=== PATIENT | female | born 1985 | race African-American/Black ===

== ENCOUNTER 2018-03-22 14:07 | Emergency (ER) | payer OTHER, BC ==
[~2018-03-22] VITALS: Ht 160 cm; Wt 80.5 kg
[~2018-03-22 14:07] MED LIST: ACETAMINOP500 MG/5 M PO; ACID CONTROL150 MG PO; ASPIRIN81 M2 PO; BACTRIM,SEPTRA S1 ML PO; COLACE100 MG PO; Chronulac,Cephulac,E PO; FERRETTS I40 MG/15 M PO; FLAGYL500 MG PO; FOLTX TABLET1 EAC1 PO; GAS-X80 MG PO; HEALTHY HEART1 EAC1 PO; IRON325 M1 PO; MACROBID100 MG PO; MOTRIN800 MG PO; ONDANSETRON HCL4 MG PO; OXYCODONE H5 MG/5 ML PO; PRENATAL TABLE1 EAC3 PO; PROMETHAZINE HC25 M1 PO; RABANO YOD50 MG/15 M PO; TRAMADOL HCL50 MG PO; UNISOM SLEEP AI25 MG PO; ZITHROMAX250 MG PO; ZOFRAN ODT4 MG PO
[2018-03-22 14:42] LABS: HEMATOCRIT 25.8 % (36.0-46.0); HEMOGLOBIN 8.6 G/DL (11.9-15.5); MCHC 33.3 G/DL (30.0-36.0); MCV 93.1 FL (83-99); PLATELET COUNT 428 K/uL (156-360); RBC DIS.WIDTH-CV 11.8 % (11.8-14.6); RBC DIS.WIDTH-SD 39.8 % (39-53); RED BLOOD COUNT 2.77 M/uL (3.80-5.20); WHITE BLOOD COUNT 11.3 K/uL (4.1-10.2)
[2018-03-22 18:42] LABS: TRANSFERRIN (TIBC) 181.5 mg/dL (215-380)
[2018-03-22 19:17] VITALS: BP 103/65
[2018-03-22 19:31] VITALS: BP 112/74
[2018-03-22 20:13] LABS: FOLIC ACID (FOLATE) > 22.0 NG/ML (5.0-22.0)
[2018-03-22 20:17] VITALS: BP 116/74
[2018-03-22 21:09] VITALS: BP 122/72
[2018-03-22 22:08] LABS: HEMATOCRIT 29.8 % (36.0-46.0); HEMOGLOBIN 10.2 G/DL (11.9-15.5); MCV 92.3 FL (83-99)
[2018-03-22 22:15] VITALS: BP 110/85
== END 2018-03-22 22:30 | disposition home or self-care (01) ==
LOC: EME 14:07
PROVIDERS: Emergency Medicine; Nurse Practitioner Family
DX: D64.9 Anemia, unspecified (principal); R53.1 Weakness; Z88.0 Allergy status to penicillin; Z98.84 Bariatric surgery status
CPT/HCPCS: 82607; 82728; 82746; 84466; 85014; 85018; 85027; 86850; 86900; 86901; 86920; 99281; 99285; J7120; P9016